=== PATIENT | male | born 1990 | race Caucasian/White ===

== ENCOUNTER 2024-06-08 20:39 | Emergency (ER) | payer OTHER ==
[~2024-06-08] VITALS: Ht 165.1 cm; Wt 75.0 kg
[~2024-06-08 20:39] MED LIST: HYDROCODON-ACE1 EA10 PO; VIGAMOX3 ML OPTH
[2024-06-08] MEDS ORDERED: TETRACAINE HCL 0.5% 4 ML BTL OS ONE (21:15)
[2024-06-08] MEDS ORDERED: SULFACETAMIDE SODIUM 10% OPTH ONE (22:00)
[2024-06-08 22:07] VITALS: BP 128/81
== END 2024-06-08 22:08 | disposition home or self-care (01) ==
LOC: ED 20:39
DX: H10.9 Unspecified conjunctivitis (principal); Z79.899 Other long term (current) drug therapy
CPT/HCPCS: 99283